=== PATIENT | female | born 1950 | race Caucasian/White ===

== ENCOUNTER 2024-09-20 09:35 | Day surgery (SDC) | payer MEDICARE, BC ==
[~2024-09-20 09:35] MED LIST: Sodium Chloride 0.9% 10 ML Syringe FLUSH PRN; Sodium Chloride 0.9% 2.5 ML Syringe FLUSH PRN; Sodium Chloride 0.9% 20 ML SDV IV PRN
[2024-09-20] MEDS: Lactated Ringers 1,000 ML IV SCH (09:58)
[2024-09-20] MEDS ORDERED: propofoL 500 MG/50 ML 50 ML ONE (10:16)
== END 2024-09-20 12:55 | disposition home or self-care (01) ==
LOC: MW.SDS 09:35
PROVIDERS: ATTEND Surgery
DX: Z12.11 Encounter for screening for malignant neoplasm of colon (principal)
CPT/HCPCS: G0121; J2704; J7120; 00812; 99100